=== PATIENT | male | born 1980 | race American Indian/Alaskan Native ===

== ENCOUNTER 2019-02-07 14:19 | Emergency (ER) | payer SELFPAY ==
[2019-02-07] MEDS ORDERED: TETANUS,DIPH,PERTUSS(ACELL) VACCINE 0.5 ML SYRINGE IM ONE (14:58)
--- NOTE | 2019-02-07 15:00 | Event Note ---
ED Screening Note Date of service: 02/07/19 Time: 14:59 ED Screening Note: 39 y/o male for gash on face since Tuesday when he fell into a glass table. Pain and swelling worst with chewing. This initial assessment/diagnostic orders/clinical plan/treatment(s) is/are subject to change based on patients health status, clinical progression and re- assessment by fellow clinical providers in the ED. Further treatment and workup at subsequent clinical providers discretion. Patient/guardian urged not to elope from the ED as their condition may be serious if not clinically assessed and managed. Initial orders include:
--- NOTE | 2019-02-07 15:56 | Emergency Department Report ---
ED General Adult HPI - General Chief complaint: Fall Stated complaint: LFT GASH ON FACE/EYE PAIN Time Seen by Provider: 02/07/19 14:24 Source: patient Mode of arrival: Ambulatory Limitations: No Limitations - History of Present Illness Initial comments: 39-year-old male who was intoxicated by alcohol on Tuesday. He states this caused him to fall through a table. He impacted the malar eminence of his face. He states that he recalls the fall and specifically the impact and had no prolonged loss of consciousness. He complains of pain in the left malar eminence area. He sustained a large wound there but elected not to go to the emergency department for 2 days. He feels that the wound is getting infected. He also complains of an impact to his right mid costal area. He states the area hurts particularly on deep inspiration. He denies shortness of breath cough fever or chills. He also denies neck pain back pain or any focal neurological change. -: Sudden Location: face, chest (right costal) Radiation: non-radiation Severity scale (0 -10): 10 Quality: aching Consistency: intermittent Improves with: none Worsens with: other (deep inspiration) Associated Symptoms: denies other symptoms (facial pain and swelling, rib pain.) - Related Data Previous Rx's Medication Instructions Recorded Last Taken Type cephALEXin [Keflex] 500 mg PO Q6HR #30 capsule 02/07/19 Unknown Rx Allergies Allergy/AdvReac Type Severity Reaction Status Date / Time No Known Allergies Allergy Unverified 02/07/19 14:27 ED Review of Systems ROS: Stated complaint: LFT GASH ON FACE/EYE PAIN Other details as noted in HPI Constitutional: denies: chills, fever Eyes: denies: eye pain, eye discharge, vision change ENT: as per HPI. denies: ear pain, throat pain Respiratory: denies: cough, shortness of breath, wheezing Cardiovascular: chest pain. denies: palpitations Endocrine: no symptoms reported Gastrointestinal: denies: abdominal pain, nausea, diarrhea Genitourinary: denies: urgency, dysuria Musculoskeletal: denies: back pain, joint swelling, arthralgia Skin: denies: rash, lesions Neurological: denies: headache, weakness, paresthesias Psychiatric: denies: anxiety, depression Hematological/Lymphatic: denies: easy bleeding, easy bruising ED Past Medical Hx - Social History Smoking Status: Current Every Day Smoker Substance Use Type: Marijuana - Medications Home Medications: Home Medications Medication Instructions Recorded Confirmed Last Taken Type cephALEXin [Keflex] 500 mg PO Q6HR #30 capsule 02/07/19 Unknown Rx ED Physical Exam - General Limitations: No Limitations General appearance: alert, in no apparent distress - Head Head exam: Present: atraumatic, normocephalic - Eye Eye exam: Present: normal appearance - ENT ENT exam: Present: mucous membranes moist, other (there is a large linear laceration that is healing by secondary intention. There is minimal erythema and swelling of the malar area of the face. There is conjunctival injection and some conjunctival hematoma. Cornea is intact. The anterior chamber is intact extraocular movements are intact. Pupils are equal and reactive. Dentition is intact. Mandible is nontender.) - Neck Neck exam: Present: normal inspection. Absent: tenderness, meningismus - Respiratory Respiratory exam: Present: normal lung sounds bilaterally, chest wall tenderness (right costal no gross crepitus). Absent: respiratory distress - Cardiovascular Cardiovascular Exam: Present: regular rate, normal rhythm. Absent: systolic murmur, diastolic murmur, rubs, gallop - GI/Abdominal GI/Abdominal exam: Present: soft, normal bowel sounds. Absent: distended, tenderness, guarding, rebound, rigid, organomegaly, mass, bruit, pulsatile mass, hernia - Rectal Rectal exam: Present: deferred - Extremities Exam Extremities exam: Present: normal inspection - Back Exam Back exam: Present: normal inspection, full ROM. Absent: CVA tenderness (R), CVA tenderness (L), muscle spasm, paraspinal tenderness, vertebral tenderness - Neurological Exam Neurological exam: Present: alert, oriented X3, CN II-XII intact. Absent: motor sensory deficit - Psychiatric Psychiatric exam: Present: normal affect, normal mood - Skin Skin exam: Present: warm, dry, intact, normal color. Absent: rash ED Course Vital Signs 02/07/19 02/07/19 02/07/19 14:24 14:46 16:51 Temperature 97.9 F 98.6 F 98.3 F Pulse Rate 109 H 74 77 Respiratory 22 18 18 Rate Blood Pressure 143/113 Blood Pressure 137/76 156/106 [Left] O2 Sat by Pulse 100 100 100 Oximetry ED Medical Decision Making - Radiology Data Radiology results: report reviewed, image reviewed (rib series is negative for fracture negative for pneumothorax, CT of the face is positive for tripod fracture on the left. CT the head is negative for acute process) Critical care attestation.: If time is entered above; I have spent that time in minutes in the direct care of this critically ill patient, excluding procedure time. ED Disposition Clinical Impression: Closed fracture of tripod Qualifiers: Encounter type: initial encounter Qualified Code(s): S02.402A - Zygomatic fracture, unspecified side, initial encounter for closed fracture; S02.30XA - Fracture of orbital floor, unspecified side, initial encounter for closed fracture; S02.401A - Maxillary fracture, unspecified side, initial encounter for closed fracture; S02.80XA - Fracture of other specified skull and facial bones, unspecified side, initial encounter for closed fracture Facial laceration Qualifiers: Encounter type: initial encounter Qualified Code(s): S01.81XA - Laceration without foreign body of other part of head, initial encounter Chest wall contusion Qualifiers: Encounter type: initial encounter Laterality: right Qualified Code(s): S20.211A - Contusion of right front wall of thorax, initial encounter Disposition: DC-01 TO HOME OR SELFCARE Is pt being admited?: No Does the pt Need Aspirin: No Condition: Stable Instructions: Facial Fracture (ED), Contusion in Adults (ED), Laceration (ED) Additional Instructions: Follow-up with ear nose and throat doctor. Return to the emergency department if increased redness swelling fever or pain as needed. Motrin for pain. Rx Kef chaz antibiotics. Prescriptions: cephALEXin [Keflex] 500 mg PO Q6HR #30 capsule Referrals: PIOTR MCDANIEL MD [Staff Physician] - 3-5 Days Forms: Work/School Release Form(ED) Time of Disposition: 17:25
--- NOTE | 2019-02-07 16:14 | XRay Report ---
RIGHT RIBS 3 VIEWS INDICATION / CLINICAL INFORMATION: Right rib pain after trauma. COMPARISON: None available. FINDINGS: RIBS: Nondisplaced fracture of the right posterior lateral ninth rib. No additional fractures. LUNGS: No acute findings. No pneumothorax. Signer Name: Rodrigue Guzman MD Signed: 02/07/2019 4:10 PM Workstation Name: [id number]
--- NOTE | 2019-02-07 16:37 | Cat Scan Report ---
CT HEAD WITHOUT CONTRAST INDICATION / CLINICAL INFORMATION: MAIN: FACIAL trauma AND SWELLING . Head injury TECHNIQUE: Axial imaging performed from the skull apex through the skull base without the use of cont rast. Sagittal and coronal reformatted images. All CT scans at this location are performed using CT dose reduction for ALARA by means of automated exposure control. COMPARISON: None available. FINDINGS: CEREBRAL PARENCHYMA: No significant abnormality. No acute territorial infarct. HEMORRHAGE: None. EXTRA-AXIAL SPACES: Normal in size and morphology for the patient's age. VENTRICULAR SYSTEM: Normal in size and morphology for the patient's age. MIDLINE SHIFT OR HERNIATION: None. CEREBELLUM / BRAINSTEM: No significant abnormality. CALVARIUM: Left zygoma deformity is consistent with acute fracture. ORBITS: Deformity of the right middle orbital wall is noted which may be chronic. There are multiple acute fracture lines in the left inferior orbital wall. Deformity of the left lateral orbital wall is suggested but incompletely imaged on this exam. PARANASAL SINUSES / MASTOID AIR CELLS: Fluid is identified in the left maxillary sinus. The remaining sinuses are adequately aerated. SOFT TISSUES of HEAD: No significant abnormality. ADDITIONAL FINDINGS: None. IMPRESSION: No acute intracranial abnormality. Multiple facial fractures are suspected but partially imaged on this exam. Recommend further evaluati on with CT facial bones. Signer Name: Drew Howard Jr, MD Signed: 02/07/2019 4:33 PM Workstation Name: [id number]
[2019-02-07 16:51] VITALS: BP 156/106
--- NOTE | 2019-02-07 16:52 | Cat Scan Report ---
FACIAL CT 02/07/2019 HISTORY: Trauma FINDINGS: CT images of the facial bones were obtained. Images are evaluated in the axial, coronal, an d sagittal plane. There is a left-sided facial "tripod" fracture, with comminuted fracture of the left zygomatic arch a nd inner disc spacing, fractures in the anterior and posterior wall of the left maxillary sinus, and fracture line extending through the left orbital floor. There is some upward buckling of the left orb ital floor. There is slight irregularity and displacement along the left lateral aspect of the nose, with possible fracture involving the nasal process of the left maxilla. Layering hyperdense fluid is present in the left maxillary sinus, consistent with hemorrhage. Paranas al sinuses are otherwise clear. Note is made of medial deviation of the right lamina paprycea (medial wall of the left orbit). This m ay be due to prior trauma. Extensive soft tissue swelling is present over the left maxilla, in association with the above-descri bed fractures. IMPRESSION: Multiple left facial fractures as described above. Prominent soft tissue swelling. All CT scans at this location are performed using dose reduction to ALARA by means of automated expos ure control. Signer Name: Brock Medeiros MD Signed: 02/07/2019 4:47 PM Workstation Name: [id number]
== END 2019-02-07 17:47 | disposition home or self-care (01) ==
LOC: ED 14:19
DX: S02.40BA Malar fracture, left side, initial encounter for closed fracture (principal); S01.81XA Laceration without foreign body of other part of head, initial encounter; S20.211A Contusion of right front wall of thorax, initial encounter; F17.200 Nicotine dependence, unspecified, uncomplicated; F12.10 Cannabis abuse, uncomplicated; Z79.899 Other long term (current) drug therapy; W18.39XA Other fall on same level, initial encounter; Y93.89 Activity, other specified; Y92.89 Other specified places as the place of occurrence of the external cause; Y99.8 Other external cause status
CPT/HCPCS: 70450; 70486; 90471; 90715